=== PATIENT | female | born 1965 | race Caucasian/White ===

== ENCOUNTER 2018-03-08 10:49 | Emergency (ER) | payer OTHER ==
[~2018-03-08] VITALS: Ht 175.3 cm; Wt 79.4 kg
[~2018-03-08 10:49] MED LIST: BACTRIM DS TAB1 EACH PO; FLAGYL500 MG PO; HYDROCODONE-AP1 EAC6 PO; KEFLEX500 MG PO; SYMBICORT160 MCG/4. INH
[2018-03-08 10:56] VITALS: BP 138/86
== END 2018-03-08 11:11 | disposition home or self-care (01) ==
LOC: M.ERS 10:49
DX: Z48.01 Encounter for change or removal of surgical wound dressing (principal); Z88.5 Allergy status to narcotic agent; Z88.0 Allergy status to penicillin

== ENCOUNTER 2019-06-22 15:18 | Emergency (ER) | payer OTHER ==
[~2019-06-22] VITALS: Ht 175.3 cm; Wt 83.9 kg
[2019-06-22] MEDS ORDERED: NORCO 5-325 TA1 EAC1 PO (16:42)
[2019-06-22 17:04] VITALS: BP 149/77
== END 2019-06-22 17:04 | disposition home or self-care (01) ==
LOC: M.ERS 15:18
DX: S93.492A Sprain of other ligament of left ankle, initial encounter (principal); S09.8XXA Other specified injuries of head, initial encounter; Z88.0 Allergy status to penicillin; Z88.5 Allergy status to narcotic agent; W10.8XXA Fall (on) (from) other stairs and steps, initial encounter; Y93.89 Activity, other specified; Y92.89 Other specified places as the place of occurrence of the external cause; Y99.8 Other external cause status

== ENCOUNTER 2021-03-25 16:55 | Emergency (ER) | payer OTHER ==
[~2021-03-25] VITALS: Ht 175.3 cm; Wt 90.7 kg
[~2021-03-25 16:55] MED LIST changes: +NORCO 5-325 TA1 EAC1 PO
[2021-03-25] MEDS ORDERED: HYDROXYZINE HCL25 M2 PO (18:06)
[2021-03-25] MEDS ORDERED: MEDROLDOSEPACK PO (18:06)
[2021-03-25] MEDS ORDERED: HYDROCORTISONE3011 TOP (18:06)
[2021-03-25 18:46] VITALS: BP 158/98
== END 2021-03-25 18:47 | disposition home or self-care (01) ==
LOC: M.ERS 16:55
DX: L25.9 Unspecified contact dermatitis, unspecified cause (principal); F17.210 Nicotine dependence, cigarettes, uncomplicated; Z79.899 Other long term (current) drug therapy; Z88.5 Allergy status to narcotic agent; Z88.0 Allergy status to penicillin

== ENCOUNTER 2021-07-03 11:39 | Emergency (ER) | payer OTHER ==
[~2021-07-03 11:39] MED LIST changes: +HYDROCORTISONE3011 TOP; +HYDROXYZINE HCL25 M2 PO; +MEDROLDOSEPACK PO
== END 2021-07-03 14:47 | disposition left against medical advice (07) ==
LOC: M.ERS 11:39
DX: R11.0 Nausea (principal); Z53.21 Procedure and treatment not carried out due to patient leaving prior to being seen by health care provider; Z88.0 Allergy status to penicillin; Z88.5 Allergy status to narcotic agent